=== PATIENT | male | born 1960 | race Caucasian/White ===

== ENCOUNTER 2018-03-15 06:15 | Emergency (ER) | payer MEDICAID ==
[~2018-03-15] VITALS: Ht 188 cm; Wt 104.3 kg
[~2018-03-15 06:15] MED LIST: ASPI81TA31 PO; CANA100T PO; CELE200C PO; CHOL400T58 PO; CYCL10TA9 PO; ESCI10TA PO; IBUP-1958 PO; LISI2.5T2 PO; MULT-1045 PO; OMEG1CAP40 PO; SIMV20TA6 PO; ZOLP5TAB2 PO
--- NOTE | 2018-03-15 06:35 | NUR ---
Dr. Bowen at bedside for MSE.
--- NOTE | 2018-03-15 06:55 | NUR ---
Xray at bedside.
--- NOTE | 2018-03-15 07:22 | NUR ---
Patient discharged to home in stable conditon. Written and verbal after care instructions given. Patient verbalizes understanding of instructions. Pt ambulated out of ER with steady gait, no acute signs of distress, VSS, all belongings taken.
[2018-03-15 07:23] VITALS: BP 139/89
== END 2018-03-15 07:24 | disposition home or self-care (01) ==
LOC: ER 06:19
DX: S80.02XA Contusion of left knee, initial encounter (principal); I10 Essential (primary) hypertension; E78.00 Pure hypercholesterolemia, unspecified; E11.9 Type 2 diabetes mellitus without complications; W10.9XXA Fall (on) (from) unspecified stairs and steps, initial encounter; Y93.89 Activity, other specified; Y92.89 Other specified places as the place of occurrence of the external cause; Y99.8 Other external cause status
CPT/HCPCS: A4663

== ENCOUNTER 2018-07-17 13:38 | Emergency (ER) | payer MEDICAID ==
[~2018-07-17] VITALS: Ht 188 cm; Wt 106.1 kg
--- NOTE | 2018-07-17 13:57 | NUR ---
Dr Bowen at the bedside for MSE.
--- NOTE | 2018-07-17 14:12 | NUR ---
DR PRATT CALLED LEFT MESSAGE WITH EXCHANGE WAITING FOR CALL BACK.
[2018-07-17] MEDS ORDERED: IBUPROFEN 800 MG TABLET PO ONE (14:30)
[2018-07-17 14:33] LABS: BASOPHILS # (AUTO) 0.1 K/uL (0.0-8.0); BASOPHILS % (AUTO) 0.5 % (0.0-2.0); EOSINOPHILS # (AUTO) 0.1 K/uL (0.0-0.7); EOSINOPHILS % (AUTO) 0.7 % (0.0-7.0); HEMOGLOBIN 17.1 g/dL (12.5-16.3); LYMPHOCYTES # (AUTO) 1.7 K/uL (20.0-40.0); LYMPHOCYTES % (AUTO) 15.4 % (20.5-51.5); MEAN CORPUSCULAR HEMOGLOBIN 27.7 uug (23.8-33.4); MEAN CORPUSCULAR HGB CONC 34 g/dL (32.5-36.3); MEAN CORPUSCULAR VOLUME 81.1 fL (73.0-96.2); MONOCYTES # (AUTO) 0.8 K/uL (2.0-10.0); MONOCYTES % (AUTO) 7.5 % (0.0-11.0); NEUTROPHILS # (AUTO) 8.3 K/uL (1.8-8.9); NEUTROPHILS % (AUTO) 75.9 % (38.5-71.5); PLATELET COUNT (AUTO) 158 K/uL (152-348); RED BLOOD CELL COUNT(AUTO) 6.16 MIL/uL (4.06-5.63)
[2018-07-17] MEDS ORDERED: IBUPROFEN 800 MG TABLET ONE (14:36)
[2018-07-17 14:41] LABS: POTASSIUM 4.3 mmol/L (3.5-5.1)
[2018-07-17 14:46] LABS: BILIRUBIN,DIRECT 0.2 mg/dL (0.0-0.2); BILIRUBIN,TOTAL 0.7 mg/dL (0.2-1.0); TOTAL PROTEIN, SERUM 7.8 g/dL (6.4-8.2)
--- NOTE | 2018-07-17 15:41 | NUR ---
Pt walked to bathroom w/ steady gait.
[2018-07-17] MEDS ORDERED: FUROSEMIDE 20 MG/2 ML VIAL IV ONE (16:30)
[2018-07-17] MEDS ORDERED: FUROSEMIDE 40 MG/4 ML VIAL ONE (16:30)
[2018-07-17] MEDS ORDERED: ASPIRIN 81 MG TAB.CHEW PO ONE (16:30)
[2018-07-17] MEDS ORDERED: NITROGLYCERIN OINT 1 GM PACKET TP ONE ×2 (16:30)
[2018-07-17] MEDS ORDERED: ASPIRIN 81 MG TAB.CHEW ONE (16:30)
[2018-07-17 16:35] VITALS: BP 119/81
--- NOTE | 2018-07-17 17:06 | NUR ---
Patient is resting comfortably in bed with eyes closed, NAD noted at this time.
--- NOTE | 2018-07-17 17:30 | NUR ---
Dinner provided, pt ate 100% of tray. Denies pain at this time.
--- NOTE | 2018-07-17 17:32 | NUR ---
Dr Bowen spoke to Dr Benitez from [facility]).
--- NOTE | 2018-07-17 17:40 | NUR ---
Received a call from [facility] mangchrista [place]. Per Rg pt wii be transfered to a hospital w/ cardiac cath. Dr Bowen and pt made aware.
--- NOTE | 2018-07-17 18:08 | NUR ---
Pt's info faxed to Rg(case manger) of [facility] for possible transfer to [facility]. Awaiting call from Dr Lanier, and Rg w/ tx info.
--- NOTE | 2018-07-17 18:30 | NUR ---
Dr Kruger from [facility] spoke to Dr Bowen. Dr Kruger accepted the pt. Awaiting arrangment info for Pt's transfer.
--- NOTE | 2018-07-17 18:43 | NUR ---
Pt signed transfer paperwork. Denies SOB and pain.
--- NOTE | 2018-07-17 19:10 | NUR ---
Assumed care of pt at this time. Pt ambulated to restroom. Appears in no apparent distress. Respirations even + unlabored. Denies chest pain/shortness of breath.
--- NOTE | 2018-07-17 19:26 | NUR ---
Spoke with [employer]DI Aircraft Painter from [facility] [place] regarding transfer information. Pt to be transferred to [facility]. Room 519B. Number for report is [phone]. ETA ALS transport ([facility]) [phone] to [phone].
--- NOTE | 2018-07-17 19:58 | NUR ---
Report given to Vadim from [facility]. Pending transportation
--- NOTE | 2018-07-17 20:46 | NUR ---
[facility] here to transfer pt to [facility]. VSS.
== END 2018-07-17 20:49 | disposition short-term general hospital (02) ==
LOC: ER 13:38
DX: M79.601 Pain in right arm (principal); M79.602 Pain in left arm; I21.3 ST elevation (STEMI) myocardial infarction of unspecified site; M54.2 Cervicalgia; M79.642 Pain in left hand; R06.02 Shortness of breath; I11.0 Hypertensive heart disease with heart failure; I50.9 Heart failure, unspecified; E78.00 Pure hypercholesterolemia, unspecified; E11.9 Type 2 diabetes mellitus without complications; Z79.1 Long term (current) use of non-steroidal anti-inflammatories (NSAID); Z79.82 Long term (current) use of aspirin; Z79.899 Other long term (current) drug therapy
CPT/HCPCS: 36415; 71045; 73130; 80048; 80076; 82550; 84484 ×2; 85025; 93005 ×2; 96374; 99285; J1940; 70030-TC; A4663

== ENCOUNTER 2018-08-04 11:39 | Emergency (ER) | payer MEDICAID ==
[~2018-08-04] VITALS: Ht 188 cm; Wt 99.8 kg
[2018-08-04] MEDS ORDERED: TESTOSTERONE IM (11:55)
--- NOTE | 2018-08-04 12:01 | NUR ---
Dr Gan at the bedside for MSE.
[2018-08-04] MEDS ORDERED: TDAP DIPH,PERTUSS,TET VAC/PF 0.5 ML DISP.SYRIN IM ONE ×2 (12:08→12:15)
[2018-08-04] MEDS ORDERED: NEOMY/BACITRA/POLYMYXIN B OINT UD PACKET TP ONE ×2 (12:11→12:15)
--- NOTE | 2018-08-04 13:12 | NUR ---
Pt out of ER for Ct.
--- NOTE | 2018-08-04 13:25 | NUR ---
Pt back from ct, resting in bed.
--- NOTE | 2018-08-04 14:29 | NUR ---
Patient discharged to home in stable conditon. Written and verbal after care instructions given. Patient verbalizes understanding of instructions.
[2018-08-04 14:30] VITALS: BP 103/58
== END 2018-08-04 14:31 | disposition home or self-care (01) ==
LOC: ER 11:39
DX: S42.032A Displaced fracture of lateral end of left clavicle, initial encounter for closed fracture (principal); S93.602A Unspecified sprain of left foot, initial encounter; M19.112 Post-traumatic osteoarthritis, left shoulder; M19.111 Post-traumatic osteoarthritis, right shoulder; M23.92 Unspecified internal derangement of left knee; I10 Essential (primary) hypertension; E11.9 Type 2 diabetes mellitus without complications; E78.5 Hyperlipidemia, unspecified; Z79.82 Long term (current) use of aspirin; Z79.1 Long term (current) use of non-steroidal anti-inflammatories (NSAID); Z79.899 Other long term (current) drug therapy; W01.0XXA Fall on same level from slipping, tripping and stumbling without subsequent striking against object, initial encounter; Y93.89 Activity, other specified; Y92.89 Other specified places as the place of occurrence of the external cause; Y99.8 Other external cause status
CPT/HCPCS: 70450; 72125; 73030; 73140; 73630; 90715; A4663

== ENCOUNTER 2018-12-01 13:10 | Emergency (ER) | payer MEDICAID ==
[~2018-12-01] VITALS: Ht 188 cm; Wt 102.1 kg
[~2018-12-01 13:10] MED LIST changes: +TESTOSTERONE IM
[2018-12-01] MEDS ORDERED: IBUPROFEN 800 MG TABLET ONE (14:09)
[2018-12-01] MEDS ORDERED: ACETAMINOPHEN ES 500 MG TABLET ONE (14:10)
[2018-12-01] MEDS ORDERED: ACETAMINOPHEN ES 500 MG TABLET PO ONE (14:15)
[2018-12-01] MEDS ORDERED: IBUPROFEN 800 MG TABLET PO ONE (14:15)
[2018-12-01] MEDS ORDERED: LIDOCAINE 5% PATCH TD ONE ×2 (14:45)
[2018-12-01 15:10] VITALS: BP 138/84
== END 2018-12-01 15:11 | disposition home or self-care (01) ==
LOC: ER 13:10
DX: M25.511 Pain in right shoulder (principal); R20.2 Paresthesia of skin; I10 Essential (primary) hypertension; E78.00 Pure hypercholesterolemia, unspecified; E11.9 Type 2 diabetes mellitus without complications; Z79.82 Long term (current) use of aspirin; Z79.1 Long term (current) use of non-steroidal anti-inflammatories (NSAID); Z79.899 Other long term (current) drug therapy
CPT/HCPCS: 73030; A4663; A9150

== ENCOUNTER 2019-06-12 05:43 | Emergency (ER) | END 2019-06-12 08:35 | disposition home or self-care (01) | DX: R10.13 Epigastric pain (principal); E78.5 Hyperlipidemia, unspecified; I10 Essential (primary) hypertension; E11.9 Type 2 diabetes mellitus without complications; Z79.82 Long term (current) use of aspirin; Z79.1 Long term (current) use of non-steroidal anti-inflammatories (NSAID); Z79.899 Other long term (current) drug therapy | CPT/HCPCS: 36415; 71045; 74177; 80048; 80076; 83690; 84484; 85025; 85730; 93005; 96374; 99284; J1885; Q9967 ==

== ENCOUNTER 2019-06-14 06:30 | Emergency (ER) | END 2019-06-14 08:36 | disposition home or self-care (01) | DX: R10.13 Epigastric pain (principal); R10.12 Left upper quadrant pain; R11.0 Nausea; I10 Essential (primary) hypertension; E78.5 Hyperlipidemia, unspecified; E11.9 Type 2 diabetes mellitus without complications; Z79.82 Long term (current) use of aspirin; Z79.1 Long term (current) use of non-steroidal anti-inflammatories (NSAID); Z79.899 Other long term (current) drug therapy | CPT/HCPCS: 36415; 80048; 80076; 83690; 84484; 85025; 93005; 96374; 99284; J3490 ==

== ENCOUNTER 2019-11-14 09:52 | Emergency (ER) | payer MEDICAID ==
[~2019-11-14] VITALS: Ht 188 cm; Wt 111.1 kg
[~2019-11-14 09:52] MED LIST changes: -ESCI10TA PO; -OMEG1CAP40 PO; -SIMV20TA6 PO; +[UNRECOGNIZED DRUG - REMARK]
--- NOTE | 2019-11-14 10:08 | NUR ---
Patient discharged to home in stable condition & brisk steady gait. Written and verbal after care instructions given to patient. Patient verbalized understanding & compliance of instructions. Stressed follow up or return to ER for worsening s/s.
== END 2019-11-14 10:08 | disposition home or self-care (01) ==
LOC: ER 09:52
DX: S90.812A Abrasion, left foot, initial encounter (principal); W45.8XXA Other foreign body or object entering through skin, initial encounter; Y93.E8 Activity, other personal hygiene; Y92.89 Other specified places as the place of occurrence of the external cause; I10 Essential (primary) hypertension; E11.9 Type 2 diabetes mellitus without complications; E78.00 Pure hypercholesterolemia, unspecified; Z79.82 Long term (current) use of aspirin
CPT/HCPCS: A4663

== ENCOUNTER 2020-01-12 12:59 | Emergency (ER) | payer MEDICAID ==
[~2020-01-12] VITALS: Ht 188 cm; Wt 106.6 kg
--- NOTE | 2020-01-12 13:42 | NUR ---
Patient discharged to home in stable condition. Written and verbal after care instructions given. Patient verbalizes understanding of instructions. Stressed follow up or return to ER for worsening s/s.pt walks i nsteady gait.
== END 2020-01-12 13:44 | disposition home or self-care (01) ==
LOC: ER 12:59
DX: S86.912A Strain of unspecified muscle(s) and tendon(s) at lower leg level, left leg, initial encounter (principal); X58.XXXA Exposure to other specified factors, initial encounter; Y93.01 Activity, walking, marching and hiking; Y92.410 Unspecified street and highway as the place of occurrence of the external cause; I10 Essential (primary) hypertension; E78.00 Pure hypercholesterolemia, unspecified; E11.9 Type 2 diabetes mellitus without complications; Z79.82 Long term (current) use of aspirin; Z79.899 Other long term (current) drug therapy; Z82.49 Family history of ischemic heart disease and other diseases of the circulatory system
CPT/HCPCS: A4663

== ENCOUNTER 2020-01-22 21:10 | Emergency (ER) | payer MEDICAID ==
[~2020-01-22] VITALS: Ht 188 cm; Wt 109.3 kg
--- NOTE | 2020-01-22 21:33 | NUR ---
Dr. Zhang at bedside for MSE.
--- NOTE | 2020-01-22 21:41 | NUR ---
Radiology notified of [facility] order.
--- NOTE | 2020-01-22 22:30 | NUR ---
satellite tv technician installer at bedside.
--- NOTE | 2020-01-22 22:46 | NUR ---
Patient cleared discharged to home in stable condition. MD explained all imaging results are negative. Emphasized importance of elevating legs and applying ice. Written and verbal after care instructions given. Patient verbalizes understanding of instructions. Stressed follow up or return to ER for worsening s/s. Ambulated out of ER in steady gait.
[2020-01-22 22:48] VITALS: BP 105/65
== END 2020-01-22 22:53 | disposition home or self-care (01) ==
LOC: ER 21:12
DX: M79.662 Pain in left lower leg (principal); M79.672 Pain in left foot; M25.572 Pain in left ankle and joints of left foot; E11.9 Type 2 diabetes mellitus without complications; I10 Essential (primary) hypertension
CPT/HCPCS: 73610; 73630; A4663

== ENCOUNTER 2020-03-16 08:48 | Emergency (ER) | payer MEDICAID ==
[~2020-03-16] VITALS: Ht 188 cm; Wt 109.3 kg
--- NOTE | 2020-03-16 09:29 | NUR ---
Patient discharged to home in stable condition. Written and verbal after care instructions given. Patient verbalizes understanding of instructions. Stressed follow up or return to ER for worsening s/s.
== END 2020-03-16 09:29 | disposition home or self-care (01) ==
LOC: ER 08:48
DX: G89.29 Other chronic pain (principal); M54.2 Cervicalgia; M54.9 Dorsalgia, unspecified; I10 Essential (primary) hypertension; E11.9 Type 2 diabetes mellitus without complications; Z79.84 Long term (current) use of oral hypoglycemic drugs; Z79.82 Long term (current) use of aspirin; E78.00 Pure hypercholesterolemia, unspecified; F10.11 Alcohol abuse, in remission; Z82.49 Family history of ischemic heart disease and other diseases of the circulatory system
CPT/HCPCS: A4663

== ENCOUNTER 2020-08-21 11:10 | Emergency (ER) | payer MEDICAID ==
[~2020-08-21] VITALS: Ht 188 cm; Wt 109.8 kg
--- NOTE | 2020-08-21 11:34 | NUR ---
at bedside for assessment
[2020-08-21] MEDS ORDERED: VANCOMYCIN IV 200 ML ONE ×2 (12:36→12:39)
[2020-08-21] MEDS ORDERED: VANCOMYCIN 1G/D5W 200 ML PIGGYBACK IV ONE (12:45)
[2020-08-21] MEDS ORDERED: AMOX-430 PO (14:18)
--- NOTE | 2020-08-21 14:29 | NUR ---
Patient discharged to home in stable condition. Able to ambulate with steady gait, no signs of acute distress noted. Written and verbal after care instructions given. Patient verbalizes understanding of instructions. Stressed follow up or return to ER for worsening s/s.
[2020-08-21 14:30] VITALS: BP 121/89
== END 2020-08-21 14:31 | disposition home or self-care (01) ==
LOC: ER 11:10
DX: L03.116 Cellulitis of left lower limb (principal); E11.40 Type 2 diabetes mellitus with diabetic neuropathy, unspecified; Z79.82 Long term (current) use of aspirin; J45.909 Unspecified asthma, uncomplicated; I10 Essential (primary) hypertension; Z79.899 Other long term (current) drug therapy; R20.0 Anesthesia of skin
CPT/HCPCS: 73630; 82962; 96365; 99284; J3370 ×2; A4663

== ENCOUNTER 2020-08-22 18:35 | Emergency (ER) | payer MEDICAID ==
[~2020-08-22] VITALS: Ht 188 cm; Wt 109.8 kg
[~2020-08-22 18:35] MED LIST changes: +AMOX-430 PO; -CANA100T PO; -[UNRECOGNIZED DRUG - REMARK]
[2020-08-22] MEDS ORDERED: VANCOMYCIN 1G/D5W 200 ML PIGGYBACK IV ONE (19:30)
[2020-08-22 19:39] LABS: *BILIRUBIN,URIN NEGATIVE (NEGATIVE); *BLOOD, URINE NEGATIVE (NEGATIVE); *CLARITY,URINE CLEAR (CLEAR); *COLOR,URINE YELLOW (YELLOW); *KETONES,URINE NEGATIVE (NEGATIVE); *UROBILINOGEN,URINE 0.2 E.U./dl (NORMAL); LEUKOCYTE ESTERASE ,URINE NEGATIVE (NEGATIVE); NITRITE, URINE NEGATIVE (NEGATIVE); PH,URINE 5.5 (5.0-8.0); UGLUCOSE 2+ (NEGATIVE)
[2020-08-22 19:40] LABS: BASOPHILS # (AUTO) 0.1 K/uL (0.0-8.0); BASOPHILS % (AUTO) 0.7 % (0.0-2.0); EOSINOPHILS # (AUTO) 0.2 K/uL (0.0-0.7); EOSINOPHILS % (AUTO) 2.7 % (0.0-7.0); HEMATOCRIT 53.1 % (36.7-47.1); HEMOGLOBIN 17.9 g/dL (12.5-16.3); LYMPHOCYTES # (AUTO) 1.8 K/uL (20.0-40.0); LYMPHOCYTES % (AUTO) 22.1 % (20.5-51.5); MEAN CORPUSCULAR HEMOGLOBIN 29.3 uug (23.8-33.4); MEAN CORPUSCULAR HGB CONC 34 g/dL (32.5-36.3); MEAN CORPUSCULAR VOLUME 86.7 fL (73.0-96.2); MONOCYTES # (AUTO) 0.6 K/uL (2.0-10.0); MONOCYTES % (AUTO) 8.1 % (0.0-11.0); NEUTROPHILS # (AUTO) 5.3 K/uL (1.8-8.9); NEUTROPHILS % (AUTO) 66.4 % (38.5-71.5); PLATELET COUNT (AUTO) 197 K/uL (152-348); RED BLOOD CELL COUNT(AUTO) 6.12 MIL/uL (4.06-5.63)
[2020-08-22] MEDS ORDERED: VANCOMYCIN 1000 MG VIAL ONE ×2 (19:42→19:43)
[2020-08-22 19:50] LABS: BILIRUBIN,DIRECT 0.2 mg/dL (0.0-0.2); BILIRUBIN,TOTAL 0.5 mg/dL (0.2-1.0); CREATININE 1.1 mg/dL (0.6-1.3); POTASSIUM 4.1 mmol/L (3.5-5.1)
[2020-08-22] MEDS ORDERED: SWABABLE VALVE TRANSFER SET EA MC ONE (21:09)
[2020-08-22] MEDS ORDERED: IV NORMAL SALINE 250 ML IV ONE (21:09)
[2020-08-22] MEDS ORDERED: IOHEXOL 300MG/ML 100 ML INFUS..BTL ONE (21:09)
[2020-08-22 22:39] VITALS: BP 120/86
--- NOTE | 2020-08-22 22:39 | NUR ---
IV removed. Catheter intact and site benign. Pressure and 4x4 gauze applied to site. No bleeding noted.
--- NOTE | 2020-08-22 22:40 | NUR ---
Patient does not wish to proceed with medical care recommended by Dr. Zhang. Patient given information related to possible complications, up to and including , which could occur as a result of leaving the hospital at this time. Patient verbalizes understanding of risks involved due to leaving against medical advice. Patient has signed AMA form.
[2020-08-23] MEDS ORDERED: INSU100I26 SQ (10:21)
[2020-08-23] MEDS ORDERED: GLIP5TAB13 PO (10:21)
[2020-08-23] MEDS ORDERED: ERTU15TA PO (10:21)
== END 2020-08-22 22:40 | disposition home or self-care (01) ==
LOC: ER 18:35
DX: L03.115 Cellulitis of right lower limb (principal); Z82.49 Family history of ischemic heart disease and other diseases of the circulatory system; J45.909 Unspecified asthma, uncomplicated; E11.9 Type 2 diabetes mellitus without complications; Z79.4 Long term (current) use of insulin; E78.00 Pure hypercholesterolemia, unspecified; I10 Essential (primary) hypertension; Z87.81 Personal history of (healed) traumatic fracture; Z79.82 Long term (current) use of aspirin; Z79.899 Other long term (current) drug therapy
CPT/HCPCS: 36415; 73630; 73701; 80048; 80076; 81003; 85025; 85651; 96365; 99285; J3370 ×2; J7060; Q9967; A4663; J7050

== ENCOUNTER 2020-08-23 10:00 | Emergency (ER) | payer MEDICAID ==
[~2020-08-23] VITALS: Ht 188 cm; Wt 109.8 kg
[2020-08-23] MEDS ORDERED: VANCOMYCIN IV 1,000 MG in IV DEXTROSE 5% 250 ML IV ONE (10:15)
[2020-08-23] MEDS ORDERED: ERTU15TA PO (10:21)
[2020-08-23] MEDS ORDERED: GLIP5TAB13 PO (10:21)
[2020-08-23] MEDS ORDERED: INSU100I26 SQ (10:21)
[2020-08-23] MEDS ORDERED: VANCOMYCIN IV 200 ML ONE (10:23)
--- NOTE | 2020-08-23 12:27 | NUR ---
IV removed. Catheter intact and site benign. Pressure and 4x4 gauze applied to site. No bleeding noted.
[2020-08-23 12:29] VITALS: BP 145/80
== END 2020-08-23 12:30 | disposition home or self-care (01) ==
LOC: ER 10:01
DX: L03.116 Cellulitis of left lower limb (principal); E11.9 Type 2 diabetes mellitus without complications; Z79.82 Long term (current) use of aspirin; J45.909 Unspecified asthma, uncomplicated; I10 Essential (primary) hypertension; Z79.899 Other long term (current) drug therapy
CPT/HCPCS: 96365; 96366; 99284; J3370; A4663

== ENCOUNTER 2020-08-26 07:01 | Emergency (ER) | payer MEDICAID ==
[~2020-08-26] VITALS: Ht 188 cm; Wt 109.8 kg
[~2020-08-26 07:01] MED LIST changes: -CYCL10TA9 PO; +ERTU15TA PO; +GLIP5TAB13 PO; +INSU100I26 SQ
--- NOTE | 2020-08-26 07:42 | NUR ---
Dr Marinelli seen and examined the pt.
[2020-08-26] MEDS ORDERED: VANCOMYCIN IV 2,000 MG in IV DEXTROSE 5% 500 ML IV STA (07:43)
[2020-08-26] MEDS ORDERED: PIPERACILLIN SODIUM/TAZOBACTAM 3.375 G in IV DEXTROSE 5% 50 ML IV ONE (07:45)
[2020-08-26] MEDS ORDERED: IV NS 1000 ML 1,000 ML IV ONE (07:45)
[2020-08-26] MEDS ORDERED: PIPERACILLIN/TAZOBACTAM/D5W 50 ML IV ONE (07:55)
[2020-08-26 07:59] LABS: BASOPHILS % (AUTO) 0.8 % (0.0-2.0); EOSINOPHILS # (AUTO) 0.2 K/uL (0.0-0.7); EOSINOPHILS % (AUTO) 3.8 % (0.0-7.0); HEMATOCRIT 54.6 % (36.7-47.1); HEMOGLOBIN 18.5 g/dL (12.5-16.3); LYMPHOCYTES # (AUTO) 1.6 K/uL (20.0-40.0); LYMPHOCYTES % (AUTO) 24.9 % (20.5-51.5); MEAN CORPUSCULAR HEMOGLOBIN 29.2 uug (23.8-33.4); MEAN CORPUSCULAR HGB CONC 34 g/dL (32.5-36.3); MEAN CORPUSCULAR VOLUME 86.2 fL (73.0-96.2); MONOCYTES # (AUTO) 0.5 K/uL (2.0-10.0); MONOCYTES % (AUTO) 8.1 % (0.0-11.0); NEUTROPHILS # (AUTO) 3.9 K/uL (1.8-8.9); NEUTROPHILS % (AUTO) 62.4 % (38.5-71.5); PLATELET COUNT (AUTO) 192 K/uL (152-348); RED BLOOD CELL COUNT(AUTO) 6.33 MIL/uL (4.06-5.63); WHITE BLOOD COUNT (AUTO) 6.3 K/uL (3.6-10.2)
[2020-08-26 08:15] LABS: BILIRUBIN,DIRECT 0.2 mg/dL (0.0-0.2); BILIRUBIN,TOTAL 0.6 mg/dL (0.2-1.0); POTASSIUM 4.3 mmol/L (3.5-5.1); TOTAL PROTEIN, SERUM 7.1 g/dL (6.4-8.2)
[2020-08-26] MEDS ORDERED: VANCOMYCIN 1000 MG VIAL ONE (08:23)
[2020-08-26] MEDS ORDERED: CLIN300C12 PO (10:08)
--- NOTE | 2020-08-26 10:13 | NUR ---
IV removed. Catheter intact and site benign. Pressure and 4x4 gauze applied to site. No bleeding noted.
[2020-08-26 10:14] VITALS: BP 122/65
--- NOTE | 2020-08-26 10:15 | NUR ---
Patient does not wish to proceed with medical care recommended by ([facility]). Patient given information related to possible complications, up to and including , which could occur as a result of leaving the hospital at this time. Patient verbalizes understanding of risks involved due to leaving against medical advice. Patient has signed AMA form.
--- NOTE | 2020-08-26 10:15 | NUR ---
Pt refused to sign AMA form and discharge paperwork. Pt left ER w/ steady gait.
== END 2020-08-26 10:21 | disposition left against medical advice (07) ==
LOC: ER 07:04
DX: L03.116 Cellulitis of left lower limb (principal); E11.65 Type 2 diabetes mellitus with hyperglycemia; J45.909 Unspecified asthma, uncomplicated; E66.9 Obesity, unspecified; Z68.31 Body mass index [BMI] 31.0-31.9, adult; I10 Essential (primary) hypertension; Z20.822 Contact with and (suspected) exposure to COVID-19; Z79.84 Long term (current) use of oral hypoglycemic drugs; Z79.82 Long term (current) use of aspirin
CPT/HCPCS: 36415; 80048; 80076; 83605; 85025; 87040 ×2; 87426; 96365; 96366; 96367; 99284; J2543; J3370; A4663; J7030; J7040

== ENCOUNTER 2021-04-09 13:37 | Emergency (ER) | payer MEDICAID ==
[~2021-04-09] VITALS: Ht 188 cm; Wt 104.3 kg
[~2021-04-09 13:37] MED LIST changes: -CELE200C PO; +CLIN300C12 PO; +LISI2.5T14 PO; -LISI2.5T2 PO
--- NOTE | 2021-04-09 13:49 | NUR ---
at bedside for assessment
[2021-04-09] MEDS ORDERED: CEPH250C PO (14:39)
[2021-04-09 15:18] VITALS: BP 134/91
== END 2021-04-09 15:00 | disposition home or self-care (01) ==
LOC: ER 13:38
DX: S91.312A Laceration without foreign body, left foot, initial encounter (principal); W26.8XXA Contact with other sharp object(s), not elsewhere classified, initial encounter; Y93.E8 Activity, other personal hygiene; Y92.89 Other specified places as the place of occurrence of the external cause; E11.42 Type 2 diabetes mellitus with diabetic polyneuropathy; Z82.49 Family history of ischemic heart disease and other diseases of the circulatory system; Z79.4 Long term (current) use of insulin; J45.909 Unspecified asthma, uncomplicated
CPT/HCPCS: 73630; A4663

== ENCOUNTER 2021-10-26 21:04 | Emergency (ER) | payer MEDICAID ==
[~2021-10-26] VITALS: Ht 188 cm; Wt 101.6 kg
[~2021-10-26 21:04] MED LIST changes: +CEPH250C PO
--- NOTE | 2021-10-26 21:27 | NUR ---
PT PLACED IN ROOM 1B.
--- NOTE | 2021-10-26 21:30 | NUR ---
Dr bautista at bedside, MSE in progress.
[2021-10-26 22:03] LABS: HEMATOCRIT 50.9 % (36.7-47.1); MEAN CORPUSCULAR HEMOGLOBIN 28.6 uug (23.8-33.4); MEAN CORPUSCULAR VOLUME 82.5 fL (73.0-96.2); PLATELET COUNT (AUTO) 188 K/uL (152-348)
[2021-10-26 22:04] LABS: CREATININE 0.9 mg/dL (0.6-1.3)
[2021-10-26 22:17] LABS: BILIRUBIN,DIRECT 0.2 mg/dL (0.0-0.2); BILIRUBIN,TOTAL 0.7 mg/dL (0.2-1.0); TOTAL PROTEIN, SERUM 7.2 g/dL (6.4-8.2)
[2021-10-26] MEDS ORDERED: ASPIRIN 81 MG TAB.CHEW ONE (22:21)
[2021-10-26] MEDS ORDERED: HYDROCODONE/APAP 5-325MG TABLET ONE (22:22)
[2021-10-26] MEDS ORDERED: IBUPROFEN 400 MG TABLET ONE (22:22)
[2021-10-26] MEDS ORDERED: ONDANSETRON ODT 4 MG TAB.RAPDIS ONE (22:22)
[2021-10-26] MEDS ORDERED: ASPIRIN 81 MG TAB.CHEW PO ONE (22:30)
[2021-10-26] MEDS ORDERED: ONDANSETRON ODT 4 MG TAB.RAPDIS SL ONE (22:30)
[2021-10-26] MEDS ORDERED: IBUPROFEN 400 MG TABLET PO ONE (22:30)
[2021-10-26] MEDS ORDERED: HYDROCODONE/APAP 5-325MG TABLET PO ONE (22:30)
[2021-10-27] MEDS ORDERED: ONDA4TAB5 PO (00:17)
[2021-10-27] MEDS ORDERED: HYDR-4209 PO ×2 (00:17→00:59)
--- NOTE | 2021-10-27 00:28 | NUR ---
Patient discharged to home in stable condition. Written and verbal after care instructions given. Patient verbalizes understanding of instructions. Stressed follow up or return to ER for worsening s/s. pt ambulated with steady gait. denies pain. no SOB. Aox4
[2021-10-27 00:30] VITALS: BP 138/75
== END 2021-10-27 00:28 | disposition home or self-care (01) ==
LOC: ER 21:07
DX: M54.6 Pain in thoracic spine (principal); F10.10 Alcohol abuse, uncomplicated; D75.1 Secondary polycythemia; E11.9 Type 2 diabetes mellitus without complications; Z79.4 Long term (current) use of insulin; Z79.84 Long term (current) use of oral hypoglycemic drugs; J45.909 Unspecified asthma, uncomplicated; R94.31 Abnormal electrocardiogram [ECG] [EKG]; I10 Essential (primary) hypertension; E78.00 Pure hypercholesterolemia, unspecified; Z82.49 Family history of ischemic heart disease and other diseases of the circulatory system; Z79.82 Long term (current) use of aspirin
CPT/HCPCS: 36415; 71045; 84484; 85025; 85730; 93005; A4663; Q0162

== ENCOUNTER 2022-02-14 12:59 | Emergency (ER) | payer MEDICAID ==
[~2022-02-14] VITALS: Ht 185.4 cm; Wt 97.1 kg
[~2022-02-14 12:59] MED LIST changes: +HYDR-4209 PO
[2022-02-14] MEDS ORDERED: MECLIZINE HCL 25 MG TABLET PO ONE (13:30)
[2022-02-14] MEDS ORDERED: ONDANSETRON 4 MG/2 ML VIAL IV ONE (13:30)
[2022-02-14] MEDS ORDERED: IV NORMAL SALINE 1000 ML BAG IV ONE (13:30)
[2022-02-14] MEDS ORDERED: OMEP20TA20 PO (13:33)
[2022-02-14] MEDS ORDERED: CANA100T PO (13:33)
[2022-02-14] MEDS ORDERED: ONDANSETRON 4 MG/2 ML VIAL ONE (13:38)
[2022-02-14] MEDS ORDERED: MECLIZINE HCL 25 MG TABLET ONE (13:38)
[2022-02-14 13:50] LABS: MEAN CORPUSCULAR HEMOGLOBIN 30.6 uug (23.8-33.4); MEAN CORPUSCULAR VOLUME 87.5 fL (73.0-96.2); PLATELET COUNT (AUTO) 190 K/uL (152-348)
[2022-02-14 14:28] LABS: CARBON DIOXIDE 28 mmol/L (21-32); CHLORIDE 101 mmol/L (98-107); CREATININE 0.8 mg/dL (0.6-1.3); GLUCOSE 173 mg/dL (74-106); POTASSIUM 4.2 mmol/L (3.5-5.1); UREA NITROGEN, BLOOD 18 mg/dL (7-18)
[2022-02-14] MEDS ORDERED: ONDA4TAB5 PO ×2 (15:29→16:20)
[2022-02-14] MEDS ORDERED: MECL-159 PO ×2 (15:29→16:20)
--- NOTE | 2022-02-14 16:03 | NUR ---
IV removed. Catheter intact and site benign. Pressure and 4x4 gauze applied to site. No bleeding noted. Patient discharged to home in stable condition with steady gait. Written and verbal after care instructions given to patient and spouse. Patient and family verbalized understanding and compliance of instructions. Stressed follow up with primary doctor, neurologist & cardiologistor return to ER for worsening s/s. Copies of all tests' results were given to patient as well.
== END 2022-02-14 16:03 | disposition home or self-care (01) ==
LOC: ER 12:59
DX: R42 Dizziness and giddiness (principal); R55 Syncope and collapse; R11.2 Nausea with vomiting, unspecified; E78.5 Hyperlipidemia, unspecified; I10 Essential (primary) hypertension; K21.9 Gastro-esophageal reflux disease without esophagitis; E11.9 Type 2 diabetes mellitus without complications; Z87.442 Personal history of urinary calculi; J45.909 Unspecified asthma, uncomplicated; Z82.49 Family history of ischemic heart disease and other diseases of the circulatory system; Z79.4 Long term (current) use of insulin; Z79.82 Long term (current) use of aspirin; Z20.822 Contact with and (suspected) exposure to COVID-19
CPT/HCPCS: 99285; 96374; 71045; 96361; 80048; 82962; 85025; 84484; 36415; 93005; U0003; C9803; J2405; J7040; A4663; J8597

== ENCOUNTER 2022-07-13 12:27 | Emergency (ER) | payer MEDICAID ==
[~2022-07-13] VITALS: Ht 185.4 cm; Wt 94.3 kg
[~2022-07-13 12:27] MED LIST changes: -AMOX-430 PO; +CANA100T PO; -CEPH250C PO; -CHOL400T58 PO; -CLIN300C12 PO; -ERTU15TA PO; -GLIP5TAB13 PO; -HYDR-4209 PO; +MECL-159 PO; +OMEP20TA20 PO; +ONDA4TAB5 PO
[2022-07-13] MEDS ORDERED: ACETAMINOPHEN 325 MG TABLET PO ONE (12:45)
[2022-07-13] MEDS ORDERED: CYCLOBENZAPRINE HCL 10 MG TABLET PO ONE (12:45)
[2022-07-13] MEDS ORDERED: CYCLOBENZAPRINE HCL 10 MG TABLET ONE (13:03)
[2022-07-13] MEDS ORDERED: ACETAMINOPHEN 325 MG TABLET ONE (13:04)
--- NOTE | 2022-07-13 15:04 | NUR ---
PT WAS EVALUATED BY DR CHAMPAGNE. PT WAS D/C'd TO HOME. D/C INSTRUCTIONS GIVEN TO THE PT BY DR CHAMPAGNE.
[2022-07-13 15:18] VITALS: BP 136/78
== END 2022-07-13 15:20 | disposition home or self-care (01) ==
LOC: ER 12:27
DX: M54.9 Dorsalgia, unspecified (principal); W01.0XXA Fall on same level from slipping, tripping and stumbling without subsequent striking against object, initial encounter; Y92.89 Other specified places as the place of occurrence of the external cause; E11.9 Type 2 diabetes mellitus without complications; I10 Essential (primary) hypertension; E78.5 Hyperlipidemia, unspecified; J45.909 Unspecified asthma, uncomplicated; K21.9 Gastro-esophageal reflux disease without esophagitis; Z82.49 Family history of ischemic heart disease and other diseases of the circulatory system; Z79.4 Long term (current) use of insulin; Z79.899 Other long term (current) drug therapy; Z79.82 Long term (current) use of aspirin; M25.571 Pain in right ankle and joints of right foot
CPT/HCPCS: 70450; 72125; 72131; 73610; 73630; A4663

== ENCOUNTER 2022-11-03 12:47 | Emergency (ER) | payer MEDICAID ==
[~2022-11-03] VITALS: Ht 188 cm; Wt 95.3 kg
--- NOTE | 2022-11-03 13:05 | NUR ---
Pt ambulatory to triage, pt was triaged and ambulated back to ER waiting room. No ER beds available at this time.
== END 2022-11-03 16:19 | disposition left against medical advice (07) ==
LOC: ER 12:47
DX: M54.9 Dorsalgia, unspecified (principal); Z53.21 Procedure and treatment not carried out due to patient leaving prior to being seen by health care provider; W19.XXXA Unspecified fall, initial encounter; Y93.89 Activity, other specified; Y92.89 Other specified places as the place of occurrence of the external cause; Y99.8 Other external cause status
CPT/HCPCS: A4663